=== PATIENT | female | born 1980 | race Asian ===

== ENCOUNTER 2018-10-21 13:33 | Observation (INO) | payer OTHER ==
[~2018-10-21] VITALS: Ht 160 cm; Wt 67.1 kg
[2018-10-21 19:55] LABS: BILIRUBIN,URINE NEGATIVE (NEGATIVE); BLOOD, URINE NEGATIVE (NEGATIVE); CLARITY/URINE CLEAR (CLEAR); COLOR,URINE YELLOW (YELLOW); GLUCOSE,URINE NEGATIVE (NEGATIVE); KETONES,URINE NEGATIVE (NEGATIVE); LEUKOCYTE ESTERASE ,URINE NEGATIVE (NEGATIVE); NITRITE, URINE NEGATIVE (NEGATIVE); PH,URINE 7.5 (5.0-8.0); PROTEIN URINE NEGATIVE (NEGATIVE); UROBILINOGEN,URINE 0.2 (0.2-1.0)
== END 2018-10-21 17:00 | disposition home or self-care (01) ==
LOC: SPU 13:33
PROVIDERS: ADMIT Specialist; ATTEND Specialist
DX: O42.912 Preterm premature rupture of membranes, unspecified as to length of time between rupture and onset of labor, second trimester (principal); Z3A.17 17 weeks gestation of pregnancy
CPT/HCPCS: 81003; 87086; G0378

== ENCOUNTER 2018-10-22 11:09 | Observation (INO) | payer OTHER ==
[~2018-10-22] VITALS: Ht 160 cm; Wt 67.1 kg
== END 2018-10-22 16:10 | disposition home or self-care (01) ==
LOC: SPU 11:09
PROVIDERS: ADMIT Specialist; ATTEND Specialist
DX: O42.912 Preterm premature rupture of membranes, unspecified as to length of time between rupture and onset of labor, second trimester (principal); Z3A.18 18 weeks gestation of pregnancy
CPT/HCPCS: 76805; 81002; G0378

== ENCOUNTER 2018-10-30 07:23 | Inpatient (IN) | payer OTHER ==
[~2018-10-30] VITALS: Ht 160 cm; Wt 67.1 kg
[2018-10-30] MEDS ORDERED: LR 1,000 ML IV SCH (08:31)
[2018-10-30] MEDS ORDERED: LR 1,000 ML IV ONE (08:31)
[2018-10-30] MEDS ORDERED: chlorproMAZINE HCL 50 MG/ 2 ML AMP IM ONE (08:45)
[2018-10-30 09:00] LABS: BASOPHILS # (AUTO) 0.1 K/uL (0.0-0.2); BASOPHILS % (AUTO) 0.5 % (0.0-2.0); EOSINOPHILS % (AUTO) 0.3 % (0.0-4.0); HEMATOCRIT 36.9 % (36-48); HEMOGLOBIN 12.7 g/dL (12.0-16.0); LYMPHOCYTES # (AUTO) 1.2 K/uL (1.0-5.5); LYMPHOCYTES % (AUTO) 9.6 % (20.5-51.5); MEAN CORPUSCULAR HEMOGLOBIN 32 pg (27-31); MEAN CORPUSCULAR HGB CONC 34 % (32-36); MEAN CORPUSCULAR VOLUME 92 fL (79.0-98.0); MONOCYTES # (AUTO) 0.7 K/uL (0.0-1.0); MONOCYTES % (AUTO) 5.3 % (1.7-9.3); NEUTROPHILS # (AUTO) 10.4 K/uL (1.8-7.7); NEUTROPHILS % (AUTO) 84.3 % (40.0-70.0); PLATELET COUNT (AUTO) 306 K/uL (130-430); WHITE BLOOD COUNT (AUTO) 12.3 K/uL (4.8-10.8)
[2018-10-30] MEDS ORDERED: MISOPROSTOL 100 MCG TABLET (CYTOTEC) VG SCH ×2 (11:00→13:00)
[2018-10-30 12:02] VITALS: BP_SYST 100
[2018-10-30] MEDS: NALBUPHINE HCL 10 MG/ML AMP IVP PRN ×2 (12:18→14:09)
[2018-10-30] MEDS ORDERED: OXYTOCIN/0.9 % SODIUM CHLORIDE 1,000 ML IV SCH (12:50)
[2018-10-30] MEDS ORDERED: HYDROmorphone 2 MG/ML VIAL IVP PRN (14:15)
[2018-10-30] MEDS: ONDANSETRON HCL 4 MG/2 ML VIAL IVP PRN ×2 (14:38→19:14)
[2018-10-30] MEDS ORDERED: CEFAZOLIN 2 GM IVPB PREMIX 50 ML IV ONE (15:45)
== END 2018-10-30 20:40 | disposition home or self-care (01) | DRG 779 ==
LOC: SPU 07:23
PROVIDERS: ADMIT Specialist; ATTEND Specialist
PROC: 10E0XZZ Delivery of Products of Conception, External Approach (ICD-10-PCS; principal; 2018-10-30)
DX: O02.1 Missed abortion (principal)
CPT/HCPCS: 36415; 81002-TC; 85025; 86592; 86886; 86900; 86901; 88309; J0690; J1170; J2300; J2405; J2590; J3230; J7120

== ENCOUNTER 2020-06-10 06:55 | Day surgery (SDC) | payer OTHER, SELFPAY ==
[~2020-06-10] VITALS: Ht 160 cm; Wt 73.0 kg
[2020-06-10] MEDS ORDERED: TERBUTALINE SULFATE 1 MG/ML VIAL SUBCUT ONE (09:45)
[2020-06-10] MEDS ORDERED: MORPHINE SULFATE 10 MG/ML VIAL IM PRN (09:45)
[2020-06-10] MEDS ORDERED: CEFAZOLIN 1 GM IVPB PREMIX 50 ML IV ONE ×2 (10:01→16:00)
[2020-06-10] MEDS ORDERED: NS IRRIG SOLN 1000 ML IR ONE (10:01)
[2020-06-10] MEDS ORDERED: BUPIVACAINE /PF 0.75% 10 ML VIAL INJ ONE (10:01)
[2020-06-10] MEDS ORDERED: D5/0.45 NS 1,000 ML IV.SOLN IV ONE (10:01)
[2020-06-10] MEDS ORDERED: ONDANSETRON HCL 4 MG/2 ML VIAL IVP PRN (10:45)
[2020-06-10 10:54] VITALS: BP_SYST 103
== END 2020-06-10 19:05 | disposition home or self-care (01) ==
LOC: SDS 06:55 → SMU 06:55 → SPU 12:20 → SDS 19:05
PROVIDERS: ATTEND Specialist
DX: O34.32 Maternal care for cervical incompetence, second trimester (principal); Z3A.15 15 weeks gestation of pregnancy
CPT/HCPCS: 59320; 82962; 87070 ×2; J0690; J3490; J7120